=== PATIENT | male | born 1945 | race Hispanic/Latino ===

== ENCOUNTER 2017-09-03 19:49 | Emergency (ER) | payer MEDICARE ==
[~2017-09-03 19:49] MED LIST: ACLI400A2 IH; ALBUHFA IH; APIX5TAB PO; CARV12.511 PO; ESCI10TA54 PO; FLUT1DIS4 IH; FURO20TA4 PO; IBUP-2071 PO; METO5TAB2 PO; OMEP-272 PO; OMEP40CA37 PO; PRAV20TA4 PO; VIT D2 PO; ZONI25CA3 PO
[2017-09-03] MEDS ORDERED: ASPIRIN 325 MG TABLET ONE (20:11)
[2017-09-03 20:56] LABS: BASOPHILS % (AUTO) 0.8 % (0.0-5.0); EOSINOPHILS % (AUTO) 0.6 % (0.0-8.0); HEMATOCRIT 41.6 % (42-54); LYMPHOCYTES % (AUTO) 22.7 % (21.0-51.0); MEAN CORPUSCULAR HEMOGLOBIN 31.5 pg (27.0-33.0); MEAN CORPUSCULAR HGB CONC 33.6 g/dL (32.0-36.0); MEAN CORPUSCULAR VOLUME 93.7 fL (79-99); MONOCYTES % (AUTO) 7.7 % (3.0-13.0); NEUTROPHILS % (AUTO) 68.2 % (40.0-77.0); PLATELET COUNT (AUTO) 258 K/uL (130-400); RED BLOOD CELL COUNT(AUTO) 4.44 MIL/uL (4.50-6.20); RED CELL DISTRIBUTION WIDTH 15.5 % (11.0-15.5); WHITE BLOOD COUNT (AUTO) 12.5 K/uL (4.8-10.8)
[2017-09-03 21:22] LABS: CREATININE 1.1 mg/dL (0.5-1.5); POTASSIUM 3.9 mmol/L (3.5-5.1)
[2017-09-03 21:27] LABS: ALBUMIN 3.5 g/dL (3.5-5.0); BILIRUBIN,TOTAL 0.2 mg/dL (0.2-1.0); TOTAL PROTEIN, SERUM 6.7 g/dL (6.0-8.3)
== END 2017-09-03 23:50 | disposition home or self-care (01) ==
LOC: EDH 19:49
DX: R07.9 Chest pain, unspecified (principal); J44.9 Chronic obstructive pulmonary disease, unspecified; R94.31 Abnormal electrocardiogram [ECG] [EKG]; E78.5 Hyperlipidemia, unspecified; Z87.891 Personal history of nicotine dependence
CPT/HCPCS: 36415; 71045; 80053; 82550; 83880; 84484; 85025; 93005

== ENCOUNTER 2018-10-09 08:37 | Day surgery (SDC) | payer MEDICARE ==
[2018-10-09] VITALS (11 sets, daily range): BP systolic 87–128; BP diastolic 47–74
[~2018-10-09] VITALS: Ht 167.6 cm; Wt 51.7 kg
[~2018-10-09 08:37] MED LIST changes: -ACLI400A2 IH; -ALBUHFA IH; +AUD IH; -CARV12.511 PO; +DOXY100T19 PO; -FLUT1DIS4 IH; -IBUP-2071 PO; +LEVO25TA54 PO; +LOSA1TAB37 PO; +METO-408 PO; -METO5TAB2 PO; -OMEP-272 PO; -OMEP40CA37 PO; +OSEL30CA PO; +PANT40TA25 PO; +PRED20TA3 PO; +SODIUM CHLORIDE 0.9% 1000ML 1,000 ML IV ONE; -VIT D2 PO; -ZONI25CA3 PO
[2018-10-09] MEDS ORDERED: PROPOFOL 10 MG/ML 20ML VIAL IV ONE (12:29)
--- NOTE | 2018-10-09 13:22 | NUR ---
Patient's right shoulder down to mid scapula with fading deep purple. No blanching to purpled skin. Patient denies pain upon palpation to purple skin and denies a fall.
== END 2018-10-09 13:45 | disposition home or self-care (01) ==
LOC: DAH 08:37 → ENDO 08:37
PROVIDERS: ATTEND Internal Medicine Gastroenterology
DX: K29.50 Unspecified chronic gastritis without bleeding (principal); K31.9 Disease of stomach and duodenum, unspecified; J44.9 Chronic obstructive pulmonary disease, unspecified; K21.9 Gastro-esophageal reflux disease without esophagitis; Z86.010 Personal history of colon polyps; Z98.890 Other specified postprocedural states; Z79.899 Other long term (current) drug therapy; E78.2 Mixed hyperlipidemia; I10 Essential (primary) hypertension
CPT/HCPCS: 43239; 88305; 88342; 93005; A4606; J2704; J7030

== ENCOUNTER → 2018-10-24 | Outpatient (CLI) | payer MEDICARE ==
[~2018-10-24] MED LIST changes: -APIX5TAB PO; -DOXY100T19 PO; +IPRATROPIUM/ALBUTEROL SULFATE 3 ML SOLUTION IH ONE; -OSEL30CA PO; -PRED20TA3 PO; -SODIUM CHLORIDE 0.9% 1000ML 1,000 ML IV ONE
== END | disposition home or self-care (01) ==
LOC: RAH 08:58
PROVIDERS: ATTEND Internal Medicine Gastroenterology
DX: K21.9 Gastro-esophageal reflux disease without esophagitis (principal)
CPT/HCPCS: 74240

== ENCOUNTER 2018-10-26 09:49 | Observation (INO) | payer MEDICARE ==
[~2018-10-26] VITALS: Ht 170.2 cm; Wt 51.6 kg
[~2018-10-26 09:49] MED LIST changes: -IPRATROPIUM/ALBUTEROL SULFATE 3 ML SOLUTION IH ONE
[2018-10-26] MEDS ORDERED: SODIUM CHLORIDE 0.9% 1000ML 0 ML IV ONE (10:00)
[2018-10-26 10:34] LABS: ABG BASE EXCESS -3.3 mmol/L (-2.0-3.0); ABG HCO3 22.4 mmol/L (21.0-28.0); ABG OXYGEN SATURATION 96.6 % (95.0-99.0); ABG PCO2 42 mmHg (35-48)
[2018-10-26 10:35] LABS: POTASSIUM 4.5 mmol/L (3.5-5.1)
[2018-10-26 10:39] LABS: ALBUMIN 3.8 g/dL (3.5-5.0); BILIRUBIN,TOTAL 0.4 mg/dL (0.2-1.0); TOTAL PROTEIN, SERUM 7.2 g/dL (6.0-8.3)
[2018-10-26 10:46] LABS: PARTIAL THROMBOPLASTIN TIME 25.6 SEC (26.3-35.5); PROTHROMBIN TIME 10.5 SEC (9.6-11.6)
[2018-10-26 10:58] LABS: B-TYPE NATRIURETIC PEPTIDE 15 pg/mL (0-100)
[2018-10-26 11:02] LABS: BASOPHILS % (AUTO) 0.5 % (0.0-5.0); EOSINOPHILS % (AUTO) 0.2 % (0.0-8.0); HEMATOCRIT 40.3 % (42-54); LYMPHOCYTES % (AUTO) 12.4 % (21.0-51.0); MEAN CORPUSCULAR HGB CONC 33.1 g/dL (32.0-36.0); MEAN CORPUSCULAR VOLUME 93.7 fL (79-99); MONOCYTES % (AUTO) 4.4 % (3.0-13.0); NEUTROPHILS % (AUTO) 82.5 % (40.0-77.0); NUCLEATED RED BLOOD CELLS 0.3 % (0.0-0.19); PLATELET COUNT (AUTO) 274 K/uL (130-400); RED BLOOD CELL COUNT(AUTO) 4.31 MIL/uL (4.50-6.20); RED CELL DISTRIBUTION WIDTH 14.4 % (11.0-15.5); WHITE BLOOD COUNT (AUTO) 8.1 K/uL (4.8-10.8)
[2018-10-26] MEDS ORDERED: METHYLPREDNISOLONE SOD SUCC 125MG/2ML VIAL ONE (12:55)
[2018-10-26] MEDS ORDERED: IPRATROPIUM/ALBUTEROL SULFATE 3 ML SOLUTION IH ONE ×2 (13:04→20:10)
[2018-10-26] MEDS ORDERED: DEXTROSE 5 %-0.45 % NACL 1,000 ML IV ONE (18:32)
[2018-10-26] MEDS ORDERED: DEXTROSE 5 % AND 0.9 % NACL 1,000 ML IV ONE (18:35)
[2018-10-26] MEDS ORDERED: DIATR MEGLU/DIATRIZOATE SODIUM 30 ML BOTTLE ONE ×2 (20:19→20:21)
[2018-10-26 21:20] VITALS: BP 121/58
[2018-10-26] MEDS ORDERED: DEXTROSE 5 % AND 0.9 % NACL 1,000 ML IV SCH (22:00)
[2018-10-26] MEDS: PANTOPRAZOLE SODIUM 40 MG TABLET.DR PO SCH (22:19)
[2018-10-26 23:34] VITALS: BP 89/58
[2018-10-27] MEDS: IPRATROPIUM/ALBUTEROL SULFATE 3 ML SOLUTION IH SCH ×3 (00:58→11:18)
[2018-10-27 04:30] VITALS: BP 89/53
[2018-10-27 06:47] VITALS: BP 88/56
[2018-10-27 07:49] VITALS: BP 88/56
[2018-10-27] MEDS ORDERED: PRAV20TA4 PO (08:07)
[2018-10-27] MEDS ORDERED: NITR100C9 PO (08:07)
[2018-10-27] MEDS ORDERED: OLME1TAB40 PO (08:07)
[2018-10-27] MEDS ORDERED: ZONI25CA3 PO (08:07)
[2018-10-27] MEDS ORDERED: OMEP20CA10 PO (08:07)
[2018-10-27] MEDS ORDERED: BUDE10.2 IH (08:07)
[2018-10-27] MEDS ORDERED: PRED5TAB PO (08:07)
[2018-10-27] MEDS ORDERED: METO5TAB2 PO (08:07)
[2018-10-27] MEDS ORDERED: MIDO5TAB PO (08:07)
--- NOTE | 2018-10-27 09:58 | NUR ---
paged dr. gurrola for the result of the upper gi series. will wait for his callback.
--- NOTE | 2018-10-27 10:28 | NUR ---
reported to dr. socorro santacruz the result of the upper gi series. dr. santacruz verbalized that in his stand point there is no need of doing egd. that to follow up in his office upon discharge. advance the diet to full liquid.
[2018-10-27 12:21] VITALS: BP 93/58
[2018-10-27] MEDS: PANTOPRAZOLE SODIUM 40 MG TABLET.DR PO SCH (12:38)
--- NOTE | 2018-10-27 14:21 | NUR ---
INITIAL: Met with w pt this afternoon to discuss dcp. Pt states that he lives alone. Prior to admission was walking without assistive device but states is in the process of getting a walker. Pt is independent w ADLs. He has at home a nebulizer, sh chair and O2. Attending Yaima [facility] [employer] from 6:30am-1:30pm and has provider services 2:30pm-6:30pm. Pt states that his friend Gloria will assist to transport him home at in. Pt mentions he feels safe and comfortable to return home at in. Addendum: 10/27/18 at 1434 by ELLE WITT CM Amended: Links added.
[2018-10-27 16:51] VITALS: BP 109/49
== END 2018-10-27 17:35 | disposition home or self-care (01) ==
LOC: EDH 09:49 → EDHIP 16:52 → 3CH 20:09
PROVIDERS: ADMIT Internal Medicine Critical Care Medicine; ATTEND Internal Medicine Critical Care Medicine
DX: R13.12 Dysphagia, oropharyngeal phase (principal); E03.9 Hypothyroidism, unspecified; E78.5 Hyperlipidemia, unspecified; J44.9 Chronic obstructive pulmonary disease, unspecified; K21.9 Gastro-esophageal reflux disease without esophagitis; F41.8 Other specified anxiety disorders; Z87.891 Personal history of nicotine dependence; Z79.899 Other long term (current) drug therapy; Z79.01 Long term (current) use of anticoagulants
CPT/HCPCS: 36415; 36600; 70490; 71045; 71250; 74220; 80053; 82550; 82803; 83880; 84484; 85025; 85610; 85730; 93005; 94640 ×5; 94664; 99284; G0378 ×25; J2930; J7042 ×3; Q9963 ×2; J7030

== ENCOUNTER 2018-12-17 10:01 | Emergency (ER) | payer MEDICARE ==
[~2018-12-17 10:01] MED LIST changes: +BUDE10.2 IH; -LOSA1TAB37 PO; -METO-408 PO; +METO5TAB2 PO; +MIDO5TAB PO; +NITR100C9 PO; +OLME1TAB40 PO; +OMEP-50 PO; -PANT40TA25 PO; +PRED5TAB PO; +ZONI25CA3 PO
[2018-12-17 10:31] LABS: BASOPHILS % (AUTO) 1.1 % (0.0-5.0); EOSINOPHILS % (AUTO) 1.1 % (0.0-8.0); HEMATOCRIT 41.1 % (42-54); LYMPHOCYTES % (AUTO) 19.7 % (21.0-51.0); MEAN CORPUSCULAR HEMOGLOBIN 30.3 pg (27.0-33.0); MEAN CORPUSCULAR HGB CONC 32.8 g/dL (32.0-36.0); MEAN CORPUSCULAR VOLUME 92.5 fL (79-99); MONOCYTES % (AUTO) 8.8 % (3.0-13.0); NEUTROPHILS % (AUTO) 69.3 % (40.0-77.0); NUCLEATED RED BLOOD CELLS 0.1 % (0.0-0.19); PLATELET COUNT (AUTO) 218 K/uL (130-400); RED BLOOD CELL COUNT(AUTO) 4.44 MIL/uL (4.50-6.20); RED CELL DISTRIBUTION WIDTH 14.6 % (11.0-15.5)
[2018-12-17 10:43] LABS: APPEARANCE,URINE Clear (CLEAR); BILIRUBIN,URINE Negative (NEGATIVE); COLOR,URINE Dark Yellow (YELLOW); GLUCOSE, URINE (UA) Negative (NEGATIVE); KETONES,URINE Trace mg/dL (NEGATIVE); LEUKOCYTE ESTERASE ,URINE Trace (NEGATIVE); NITRATE,URINE Negative (NEGATIVE); OCCULT BLOOD,URINE Negative (NEGATIVE); PH,URINE 5.5 (5.0-8.0); PROTEIN,URINE Trace mg/dL (NEGATIVE)
[2018-12-17 10:45] LABS: CREATININE 1.1 mg/dL (0.5-1.5); POTASSIUM 4.9 mmol/L (3.5-5.1)
[2018-12-17 10:49] LABS: BILIRUBIN,TOTAL 0.5 mg/dL (0.2-1.0); TOTAL PROTEIN, SERUM 7.1 g/dL (6.0-8.3)
[2018-12-17 10:55] LABS: PARTIAL THROMBOPLASTIN TIME 20.1 SEC (26.3-35.5)
[2018-12-17 11:03] LABS: BACTERIA,URINE None Seen /HPF (None Seen); HYALINE CASTS, URINE 0-1 /LPF (0-1 /LPF); MUCUS,URINE Few LPF (None Seen); RBC,URINE 0-1 /HPF (0-1); SQUAMOUS EPITHELIAL CELL,UR 0-2 /HPF (0-2); WBC,URINE 0-1 /HPF (0-1)
[2018-12-17 11:07] LABS: INR 0.98 (0.85-1.15); PROTHROMBIN TIME 10.3 SEC (9.6-11.6)
[2018-12-17] MEDS ORDERED: TRAMADOL HCL 50 MG TABLET ONE (11:38)
== END 2018-12-17 12:13 | disposition home or self-care (01) ==
LOC: EDH 10:01
DX: R07.89 Other chest pain (principal); I10 Essential (primary) hypertension; J44.9 Chronic obstructive pulmonary disease, unspecified; E78.5 Hyperlipidemia, unspecified; I48.91 Unspecified atrial fibrillation; Z79.899 Other long term (current) drug therapy
CPT/HCPCS: 36415; 71101; 80053; 81001; 82150; 82550; 83690; 84484; 85025; 85610; 85730; 93005

== ENCOUNTER 2018-12-20 01:04 | Emergency (ER) | payer MEDICARE ==
[2018-12-20 01:34] LABS: BASOPHILS % (AUTO) 2.9 % (0.0-5.0); EOSINOPHILS % (AUTO) 0.9 % (0.0-8.0); HEMATOCRIT 37.6 % (42-54); LYMPHOCYTES % (AUTO) 13.2 % (21.0-51.0); MEAN CORPUSCULAR HEMOGLOBIN 31.3 pg (27.0-33.0); MEAN CORPUSCULAR HGB CONC 33.3 g/dL (32.0-36.0); MEAN CORPUSCULAR VOLUME 93.9 fL (79-99); MONOCYTES % (AUTO) 10.4 % (3.0-13.0); NEUTROPHILS % (AUTO) 72.6 % (40.0-77.0); PLATELET COUNT (AUTO) 211 K/uL (130-400); RED CELL DISTRIBUTION WIDTH 15.1 % (11.0-15.5); WHITE BLOOD COUNT (AUTO) 8.5 K/uL (4.8-10.8)
[2018-12-20 01:42] LABS: CREATININE 0.9 mg/dL (0.5-1.5); POTASSIUM 4.8 mmol/L (3.5-5.1)
[2018-12-20 01:45] LABS: INR 0.94 (0.85-1.15); PARTIAL THROMBOPLASTIN TIME 20.4 SEC (26.3-35.5); PROTHROMBIN TIME 9.9 SEC (9.6-11.6)
[2018-12-20 01:47] LABS: B-TYPE NATRIURETIC PEPTIDE 51 pg/mL (0-100)
[2018-12-20 01:48] LABS: ALBUMIN 3.6 g/dL (3.5-5.0); BILIRUBIN,TOTAL 0.3 mg/dL (0.2-1.0); TOTAL PROTEIN, SERUM 6.2 g/dL (6.0-8.3)
[2018-12-20] MEDS ORDERED: MORPHINE SULFATE 4 MG/1ML SYG ONE (01:59)
[2018-12-20] MEDS ORDERED: ONDANSETRON HCL 4 MG/2 ML VIAL ONE (01:59)
[2018-12-20] MEDS ORDERED: IPRATROPIUM/ALBUTEROL SULFATE 3 ML SOLUTION IH ONE (02:03)
[2018-12-20 02:08] LABS: APPEARANCE,URINE Clear (CLEAR); BILIRUBIN,URINE Negative (NEGATIVE); COLOR,URINE Yellow (YELLOW); GLUCOSE, URINE (UA) Negative (NEGATIVE); KETONES,URINE Negative (NEGATIVE); LEUKOCYTE ESTERASE ,URINE Negative (NEGATIVE); NITRATE,URINE Negative (NEGATIVE); OCCULT BLOOD,URINE Negative (NEGATIVE); PH,URINE 6.5 (5.0-8.0); PROTEIN,URINE Negative (NEGATIVE)
== END 2018-12-20 03:22 | disposition home or self-care (01) ==
LOC: EDH 01:04
DX: R07.89 Other chest pain (principal); R06.02 Shortness of breath; I48.91 Unspecified atrial fibrillation; J44.9 Chronic obstructive pulmonary disease, unspecified; E78.5 Hyperlipidemia, unspecified; I10 Essential (primary) hypertension
CPT/HCPCS: 36415; 71045; 80053; 81003; 82550; 83880; 84484; 85025; 85610; 85730; 93005; 94640; 96374; 96375; 99285; J2270; J2405

== ENCOUNTER 2018-12-21 08:48 | Observation (INO) | payer MEDICARE ==
[~2018-12-21] VITALS: Ht 172.7 cm; Wt 51.0 kg
[2018-12-21 09:15] LABS: BASOPHILS % (AUTO) 0.7 % (0.0-5.0); EOSINOPHILS % (AUTO) 0.4 % (0.0-8.0); HEMATOCRIT 41.1 % (42-54); LYMPHOCYTES % (AUTO) 11.7 % (21.0-51.0); MEAN CORPUSCULAR HEMOGLOBIN 30.5 pg (27.0-33.0); MEAN CORPUSCULAR HGB CONC 32.6 g/dL (32.0-36.0); MEAN CORPUSCULAR VOLUME 93.6 fL (79-99); MONOCYTES % (AUTO) 6.6 % (3.0-13.0); NEUTROPHILS % (AUTO) 80.6 % (40.0-77.0); PLATELET COUNT (AUTO) 214 K/uL (130-400); RED BLOOD CELL COUNT(AUTO) 4.38 MIL/uL (4.50-6.20); RED CELL DISTRIBUTION WIDTH 15.7 % (11.0-15.5); WHITE BLOOD COUNT (AUTO) 9.4 K/uL (4.8-10.8)
[2018-12-21 09:22] LABS: CREATININE 1.2 mg/dL (0.5-1.5); POTASSIUM 5.1 mmol/L (3.5-5.1)
[2018-12-21 09:25] LABS: INR 0.93 (0.85-1.15); PARTIAL THROMBOPLASTIN TIME 21.9 SEC (26.3-35.5); PROTHROMBIN TIME 9.8 SEC (9.6-11.6)
[2018-12-21 09:26] LABS: ALBUMIN 3.7 g/dL (3.5-5.0); BILIRUBIN,TOTAL 0.3 mg/dL (0.2-1.0)
[2018-12-21] MEDS ORDERED: METHYLPREDNISOLONE SOD SUCC 125MG/2ML VIAL ONE (09:28)
[2018-12-21] MEDS ORDERED: IPRATROPIUM/ALBUTEROL SULFATE 3 ML SOLUTION IH ONE (09:34)
[2018-12-21] MEDS ORDERED: ASPIRIN 325 MG TABLET ONE (09:34)
[2018-12-21 09:36] LABS: B-TYPE NATRIURETIC PEPTIDE 43 pg/mL (0-100)
[2018-12-21 09:44] LABS: ABG BASE EXCESS 1.7 mmol/L (-2.0-3.0); ABG HCO3 26.9 mmol/L (21.0-28.0); ABG OXYGEN SATURATION 97.3 % (95.0-99.0); ABG PCO2 44 mmHg (35-48)
[2018-12-21] MEDS ORDERED: CEFTRIAXONE SODIUM 1 GM ONE (12:39)
[2018-12-21 12:57] VITALS: BP 126/68
[2018-12-21] MEDS ORDERED: SODIUM CHLORIDE 0.9% 10 ML VIAL IVP PRN (13:15)
[2018-12-21] MEDS: AZITHROMYCIN 500MG+NS 250ML 250 ML IV SCH (13:21)
[2018-12-21 13:55] LABS: CREATINE KINASE, TOTAL 161 U/L (21-232); MYOGLOBIN 75 ng/mL (10-92); TROPONIN I < 0.04 ng/mL (0.00-0.06)
[2018-12-21] MEDS ORDERED: PHARMACY COMMUNICATION MISC SCH (14:00)
[2018-12-21] MEDS: METOCLOPRAMIDE 5 MG TABLET PO SCH ×2 (14:00→21:35)
[2018-12-21] MEDS ORDERED: ALBUTEROL SULFATE 0.083% 2.5 MG/3 ML INH IH PRN (14:15)
[2018-12-21] MEDS ORDERED: COMPOUND PO MISCELLANEOUS 1 EACH MISC MISC PRN (14:15)
[2018-12-21] MEDS ORDERED: LIDOCAINE HCL 2% VISCOUS 30 ML, MAG HYDROX/AL HYDROX/SIMETH 30 ML, DICYCLOMINE HCL 20 MG PO PRN ×3 (14:15)
[2018-12-21 16:00] VITALS: BP 128/70
[2018-12-21] MEDS: KETOROLAC TROMETHAMINE 30MG/ML IV PRN (17:31)
[2018-12-21] MEDS: METHYLPREDNISOLONE SOD SUCC 125MG/2ML VIAL IVP SCH ×2 (17:33→21:35)
--- NOTE | 2018-12-21 19:15 | NUR ---
PM Assessment Received pt with a friend Gloria Zavala # [phone] at the bedside who stated he is about to leave the pt but will be coming back in AM as claimed pt lives alone & that the pt is her friend group from [facility] where their group help each other especially with those [place]. Routine assessment done, plan of care discuss, made aware & agreed that he needs to be place on BIPAP once ready to go to sleep, agreed. Pt currently denies any discomfort.
[2018-12-21] MEDS: BUDESONIDE 0.5 MG/2 ML INH IH SCH (19:27)
[2018-12-21] MEDS: IPRATROPIUM/ALBUTEROL SULFATE 3 ML SOLUTION IH SCH ×2 (19:27→23:25)
[2018-12-21 19:41] VITALS: BP 123/69
[2018-12-21] MEDS: ATORVASTATIN CALCIUM 10 MG TABLET PO SCH (21:35)
[2018-12-22] VITALS (7 sets, daily range): BP systolic 101–125; BP diastolic 58–68
[2018-12-22] MEDS: METHYLPREDNISOLONE SOD SUCC 125MG/2ML VIAL IVP SCH (04:29)
[2018-12-22] MEDS: LEVOTHYROXINE 25 MCG TABLET PO SCH (06:46)
[2018-12-22] MEDS: BUDESONIDE 0.5 MG/2 ML INH IH SCH ×2 (06:51→19:01)
[2018-12-22] MEDS: IPRATROPIUM/ALBUTEROL SULFATE 3 ML SOLUTION IH SCH ×4 (06:51→23:10)
[2018-12-22] MEDS ORDERED: PREDNISONE 5 MG TABLET PO SCH (09:00)
[2018-12-22] MEDS: FUROSEMIDE 20 MG TABLET PO SCH (09:48)
[2018-12-22] MEDS: PANTOPRAZOLE SODIUM 40 MG TABLET.DR PO SCH (09:48)
[2018-12-22] MEDS: LOSARTAN 100 MG TABLET PO SCH (09:48)
[2018-12-22] MEDS: HYDROCHLOROTHIAZIDE 25 MG TABLET PO SCH (09:48)
[2018-12-22] MEDS: METOCLOPRAMIDE 5 MG TABLET PO SCH ×3 (09:48→21:13)
[2018-12-22] MEDS: CEFTRIAXONE SODIUM 1 GM IVP SCH (09:48)
[2018-12-22] MEDS: CITALOPRAM 20 MG TABLET PO SCH (09:48)
[2018-12-22] MEDS: ZONISAMIDE 50 MG PO SCH ×2 (10:05→21:00)
[2018-12-22] MEDS: AZITHROMYCIN 500MG+NS 250ML 250 ML IV SCH (13:55)
[2018-12-22] MEDS ORDERED: ALEN35TA31 PO (13:55)
--- NOTE | 2018-12-22 17:25 | NUR ---
cm note met with patient and states resides at home alone, uses walker for ambulation, uses home O2 continuous portable and concentrator, . attends [employer] [facility] mon-monday 631am to 1230p. has provider 1230p to 630pm daily. no nebulizer, only inhalers. states feels safe to reurn back home at time of dc. but, not until his pain has improved. states no dc needs. Addendum: 12/22/18 at 1728 by JOSÉ WALLACE CM Amended: Links added.
[2018-12-22] MEDS: ATORVASTATIN CALCIUM 10 MG TABLET PO SCH (21:14)
[2018-12-23] MEDS: KETOROLAC TROMETHAMINE 30MG/ML IV PRN (00:03)
[2018-12-23 03:54] VITALS: BP 127/75
[2018-12-23] MEDS: IPRATROPIUM/ALBUTEROL SULFATE 3 ML SOLUTION IH SCH ×2 (06:23→10:59)
[2018-12-23] MEDS: BUDESONIDE 0.5 MG/2 ML INH IH SCH (06:23)
[2018-12-23 07:34] VITALS: BP 126/71
[2018-12-23] MEDS: HYDROCHLOROTHIAZIDE 25 MG TABLET PO SCH (07:53)
[2018-12-23] MEDS: METOCLOPRAMIDE 5 MG TABLET PO SCH ×2 (07:53→13:00)
[2018-12-23] MEDS: CITALOPRAM 20 MG TABLET PO SCH (07:53)
[2018-12-23] MEDS: FUROSEMIDE 20 MG TABLET PO SCH (07:53)
[2018-12-23] MEDS: LOSARTAN 100 MG TABLET PO SCH (07:53)
[2018-12-23] MEDS: PANTOPRAZOLE SODIUM 40 MG TABLET.DR PO SCH (07:53)
[2018-12-23] MEDS: LEVOTHYROXINE 25 MCG TABLET PO SCH (07:53)
[2018-12-23] MEDS: ZONISAMIDE 50 MG PO SCH (08:02)
[2018-12-23] MEDS ORDERED: PREDNISONE 20 MG TABLET PO SCH (09:00)
--- NOTE | 2018-12-23 11:00 | NUR ---
DR. 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 DR. DE JESUS INFORMED PT. RE:DISCHARGE PLAN FOR HOME TODAY, PT. VERBALIZED UNDERSTANDING.
[2018-12-23] MEDS: CEFTRIAXONE SODIUM 1 GM IVP SCH (11:01)
[2018-12-23 11:40] VITALS: BP 112/67
[2018-12-23] MEDS: AZITHROMYCIN 500MG+NS 250ML 250 ML IV SCH (12:55)
--- NOTE | 2018-12-23 15:20 | NUR ---
HL REMOVED, CATHETER INTACT. DISCHARGE INSTRUCTIONS GIVEN, VERBALIZED UNDERSTANDING.
== END 2018-12-23 15:39 | disposition home or self-care (01) ==
LOC: EDH 08:48 → EDHIP 11:40 → 2DH 12:34
PROVIDERS: ADMIT Internal Medicine Critical Care Medicine; ATTEND Internal Medicine Critical Care Medicine
DX: J44.1 Chronic obstructive pulmonary disease with (acute) exacerbation (principal); E03.9 Hypothyroidism, unspecified; E78.5 Hyperlipidemia, unspecified; R13.12 Dysphagia, oropharyngeal phase; F32.9 Major depressive disorder, single episode, unspecified; F41.9 Anxiety disorder, unspecified; Z87.891 Personal history of nicotine dependence; Z99.81 Dependence on supplemental oxygen; Z79.899 Other long term (current) drug therapy; Z79.01 Long term (current) use of anticoagulants
CPT/HCPCS: 36415; 36600; 71045; 80053; 82435; 82550 ×2; 82803; 82947; 83605; 83874; 83880; 84132; 84295; 84484 ×2; 85018; 85025; 85610; 85730; 93005 ×2; 94640 ×13; 94660; 94664; 96365; 96366 ×2; 96375; 96376 ×3; 99291; G0378 ×50; J0456 ×3; J0696 ×3; J1885 ×2; J2930 ×4; J7512

== ENCOUNTER → 2019-01-09 | Outpatient (CLI) | payer MEDICARE ==
[~2019-01-09] MED LIST changes: +ALEN35TA31 PO
== END | disposition home or self-care (01) ==
LOC: RAH 10:52
PROVIDERS: ATTEND Internal Medicine Cardiovascular Disease
DX: I25.10 Atherosclerotic heart disease of native coronary artery without angina pectoris (principal); J98.4 Other disorders of lung
CPT/HCPCS: 71250

== ENCOUNTER → 2019-03-25 | Outpatient (CLI) | payer MEDICARE ==
[~2019-03-25] VITALS: Ht 172.7 cm; Wt 51.7 kg
[~2019-03-25] MED LIST changes: +ALEN35TA23 PO; -ALEN35TA31 PO; -MIDO5TAB PO; +MIDO5TAB4 PO; +REGADENOSON 0.4 MG/5 ML PF SYG IVP SCH
== END | disposition home or self-care (01) ==
LOC: SHCH 08:09
PROVIDERS: ATTEND Internal Medicine Cardiovascular Disease
DX: I25.9 Chronic ischemic heart disease, unspecified (principal); I25.10 Atherosclerotic heart disease of native coronary artery without angina pectoris
CPT/HCPCS: 78452; 93017; 96374; A9500 ×2; J2785

== ENCOUNTER → 2019-06-25 | Outpatient (CLI) | payer MEDICARE ==
[~2019-06-25] MED LIST changes: -OLME1TAB40 PO; +OLME1TAB82 PO; -OMEP-50 PO; +OMEP20CA12 PO; -REGADENOSON 0.4 MG/5 ML PF SYG IVP SCH; +ZONI25CA14 PO; -ZONI25CA3 PO
[2019-06-25 08:42] LABS: BASOPHILS % (AUTO) 0.4 % (0.0-5.0); EOSINOPHILS % (AUTO) 3.1 % (0.0-8.0); HEMATOCRIT 41.2 % (42-54); LYMPHOCYTES % (AUTO) 23.1 % (21.0-51.0); MEAN CORPUSCULAR HEMOGLOBIN 29.6 pg (27.0-33.0); MEAN CORPUSCULAR HGB CONC 31.1 g/dL (32.0-36.0); MEAN CORPUSCULAR VOLUME 95.2 fL (79-99); MONOCYTES % (AUTO) 9.3 % (3.0-13.0); NEUTROPHILS % (AUTO) 63.6 % (40.0-77.0); PLATELET COUNT (AUTO) 293 K/uL (130-400); RED BLOOD CELL COUNT(AUTO) 4.33 MIL/uL (4.50-6.20); WHITE BLOOD COUNT (AUTO) 8.3 K/uL (4.8-10.8)
[2019-06-25 08:49] LABS: APPEARANCE,URINE Clear (CLEAR); BILIRUBIN,URINE Negative (NEGATIVE); COLOR,URINE Yellow (YELLOW); GLUCOSE, URINE (UA) Negative (NEGATIVE); KETONES,URINE Negative (NEGATIVE); LEUKOCYTE ESTERASE ,URINE Negative (NEGATIVE); NITRATE,URINE Negative (NEGATIVE); OCCULT BLOOD,URINE Negative (NEGATIVE); PROTEIN,URINE POS 1+ mg/dL (NEGATIVE)
[2019-06-25 08:59] LABS: BACTERIA,URINE Rare /HPF (None Seen); MUCUS,URINE Rare LPF (None Seen); RBC,URINE 0-1 /HPF (0-1); SQUAMOUS EPITHELIAL CELL,UR Rare /HPF (0-2); WBC,URINE 0-1 /HPF (0-1)
[2019-06-25 09:33] LABS: ALBUMIN 3.5 g/dL (3.5-5.0); BILIRUBIN,TOTAL 0.4 mg/dL (0.2-1.0); POTASSIUM 4.3 mmol/L (3.5-5.1); THYROID STIMULATING HORMONE 4.79 uIU/mL (0.36-3.74); TOTAL PROTEIN, SERUM 6.8 g/dL (6.0-8.3)
== END | disposition home or self-care (01) ==
LOC: LAB 07:30
PROVIDERS: ATTEND Family Medicine
DX: E55.9 Vitamin D deficiency, unspecified (principal); E53.8 Deficiency of other specified B group vitamins; R73.9 Hyperglycemia, unspecified; I10 Essential (primary) hypertension; E03.9 Hypothyroidism, unspecified; R73.03 Prediabetes; Z00.00 Encounter for general adult medical examination without abnormal findings; Z79.899 Other long term (current) drug therapy
CPT/HCPCS: 36415; 80053; 80061; 81001; 82306; 82607; 84439; 84443; 84481; 85025

== ENCOUNTER → 2019-11-08 | Outpatient (CLI) | payer MEDICARE | END | disposition home or self-care (01) | LOC: SHCH 08:05 | PROVIDERS: ATTEND Internal Medicine Cardiovascular Disease | DX: R60.0 Localized edema (principal) | CPT/HCPCS: 93306; 93356 ==

== ENCOUNTER → 2020-05-28 | Outpatient (CLI) | payer MEDICARE ==
[~2020-05-28] MED LIST changes: -ALEN35TA23 PO; +ALEN35TA51 PO; +OLME-7 PO; -OLME1TAB82 PO
== END | disposition home or self-care (01) ==
LOC: RAH 10:07
PROVIDERS: ATTEND Internal Medicine Gastroenterology
DX: R63.3 Feeding difficulties (principal); R13.12 Dysphagia, oropharyngeal phase
CPT/HCPCS: 74230; 92610; 92611

== ENCOUNTER → 2020-06-23 | Outpatient (CLI) | payer MEDICARE | END | disposition home or self-care (01) | LOC: RAH 10:31 | PROVIDERS: ATTEND Family Medicine | DX: M19.012 Primary osteoarthritis, left shoulder (principal); M75.102 Unspecified rotator cuff tear or rupture of left shoulder, not specified as traumatic | CPT/HCPCS: 73221 ==

== ENCOUNTER 2021-06-29 09:10 | Emergency (ER) | payer MEDICARE ==
[~2021-06-29 09:10] MED LIST changes: -ALEN35TA51 PO; +ALEN35TA53 PO; +APIX5TAB PO; +ESCI-8 PO; -ESCI10TA54 PO; +METO-408 PO; +PANT40TA54 PO; +PRED10TA3 PO; -PRED5TAB PO
[2021-06-29 09:44] LABS: BASOPHILS % (AUTO) 0.2 % (0.0-5.0); EOSINOPHILS % (AUTO) 0.3 % (0.0-8.0); HEMATOCRIT 43.7 % (42-54); LYMPHOCYTES % (AUTO) 22.5 % (21.0-51.0); MEAN CORPUSCULAR HEMOGLOBIN 27.9 pg (27.0-33.0); MEAN CORPUSCULAR HGB CONC 30.4 g/dL (32.0-36.0); MEAN CORPUSCULAR VOLUME 91.8 fL (79-99); MONOCYTES % (AUTO) 9.7 % (3.0-13.0); PLATELET COUNT (AUTO) 245 K/uL (130-400); RED BLOOD CELL COUNT(AUTO) 4.76 MIL/uL (4.50-6.20); RED CELL DISTRIBUTION WIDTH 17.7 % (11.0-15.5); WHITE BLOOD COUNT (AUTO) 15.1 K/uL (4.8-10.8)
[2021-06-29 09:51] LABS: CREATININE 1.1 mg/dL (0.5-1.5); POTASSIUM 5.1 mmol/L (3.5-5.1)
[2021-06-29 09:56] LABS: ALBUMIN 4.2 g/dL (3.5-5.0); BILIRUBIN,TOTAL 0.3 mg/dL (0.2-1.0); TOTAL PROTEIN, SERUM 7.5 g/dL (6.0-8.3)
[2021-06-29 12:43] VITALS: BP 124/74
== END 2021-06-29 13:32 | disposition home or self-care (01) ==
LOC: EDH 09:10
DX: R09.89 Other specified symptoms and signs involving the circulatory and respiratory systems (principal); R07.0 Pain in throat; R06.02 Shortness of breath; Z20.822 Contact with and (suspected) exposure to COVID-19; E11.9 Type 2 diabetes mellitus without complications; E78.00 Pure hypercholesterolemia, unspecified; Z79.01 Long term (current) use of anticoagulants; Z79.51 Long term (current) use of inhaled steroids; Z79.52 Long term (current) use of systemic steroids; Z79.899 Other long term (current) drug therapy
CPT/HCPCS: 36415; 70490; 71045; 71250; 80053; 85025; 87426

== ENCOUNTER 2021-08-16 13:45 | Inpatient (IN) | payer MEDICARE ==
[~2021-08-16] VITALS: Ht 154.9 cm; Wt 47.9 kg
[2021-08-16] MEDS ORDERED: NITROGLYCERIN 0.4 MG SL TAB SL PRN (14:00)
[2021-08-16 14:08] LABS: HEMATOCRIT 41.7 % (42-54); MEAN CORPUSCULAR HEMOGLOBIN 29.5 pg (27.0-33.0); MEAN CORPUSCULAR HGB CONC 31.4 g/dL (32.0-36.0); MEAN CORPUSCULAR VOLUME 93.9 fL (79-99); RED BLOOD CELL COUNT(AUTO) 4.44 MIL/uL (4.50-6.20); WHITE BLOOD COUNT (AUTO) 8.2 K/uL (4.8-10.8)
[2021-08-16 14:09] LABS: PLATELET COUNT (AUTO) 204 K/uL (130-400)
[2021-08-16] MEDS ORDERED: DOCU-116 PO (14:14)
[2021-08-16] MEDS ORDERED: NITR0.4T50 SL (14:14)
[2021-08-16] MEDS ORDERED: LISI5TAB21 PO (14:14)
[2021-08-16] MEDS ORDERED: CETI10TA57 PO (14:14)
[2021-08-16] MEDS ORDERED: OLOP2.5D16 OP (14:14)
[2021-08-16] MEDS ORDERED: ISOS30TA92 PO (14:14)
[2021-08-16 14:17] LABS: CREATININE 1.1 mg/dL (0.5-1.5); POTASSIUM 5.3 mmol/L (3.5-5.1)
[2021-08-16 14:34] LABS: ABG BASE EXCESS -8.2 mmol/L (-2.0-3.0); ABG HCO3 14.3 mmol/L (21.0-28.0); ABG OXYGEN SATURATION 98.8 % (95.0-99.0); ABG PCO2 24 mmHg (35-48)
[2021-08-16 14:57] LABS: B-TYPE NATRIURETIC PEPTIDE 75 pg/mL (0-100)
[2021-08-16] MEDS ORDERED: CEFTRIAXONE 2GM VIAL IVP SCH (15:30)
[2021-08-16] MEDS ORDERED: PANTOPRAZOLE 40 MG/VIAL IVP ONE (15:30)
[2021-08-16] MEDS: IPRATROPIUM/ALBUTEROL SULFATE 3 ML SOLUTION IH SCH ×3 (16:00→23:44)
[2021-08-16 16:01] LABS: ALBUMIN 3.5 g/dL (3.5-5.0); BAND NEUTROPHILS % (MANUAL) 4 % (0-2); BILIRUBIN,DIRECT 0.1 mg/dL (0.0-0.3); BILIRUBIN,TOTAL 0.2 mg/dL (0.2-1.0); MAN.DIFF COMMENT-IMPRESSION MANUAL DIFFERENTIAL; MONOCYTES % (MANUAL) 4 % (2-9); REACTIVE LYMPHOCYTES 6 % (0-0); SEGMENTED NEUTROPHILS % 86 % (40-70); THYROID STIMULATING HORMONE 1.81 uIU/mL (0.36-3.74); TOTAL PROTEIN, SERUM 6.9 g/dL (6.0-8.3)
[2021-08-16 16:05] LABS: PLATELET MORPHOLOGY COMMENT LARGE PLTS PRESENT
[2021-08-16] MEDS ORDERED: 0.9%NACL 50ML 50 ML IV ONE (16:27)
[2021-08-16] MEDS: SOLU-MEDROL 40MG VIAL IVP SCH ×2 (16:35→22:35)
[2021-08-16 16:46] LABS: CREATINE KINASE, TOTAL 88 U/L (21-232); MYOGLOBIN 82 ng/mL (10-92)
[2021-08-16] MEDS ORDERED: LACTATED RINGERS 1000ML 1,000 ML IV ONE (16:53)
[2021-08-16 16:57] LABS: CRP QUANTITATIVE < 2.00 mg/L (0.00-9.0)
[2021-08-16] MEDS ORDERED: LACTATED RINGERS 1000ML 1,000 ML IV SCH (17:00)
[2021-08-16] MEDS ORDERED: 0.9%NACL 1000ML 1,000 ML IV SCH (17:00)
[2021-08-16] MEDS ORDERED: ZOSYN 3.375GM +NS 50ML IV SCH (17:30)
[2021-08-16] MEDS: DOXYCYCLINE 100MG+NS 250ML IV SCH (17:44)
[2021-08-16] MEDS ORDERED: [UNRECOGNIZED DRUG - REMARK] MISC SCH (18:00)
[2021-08-16] MEDS: BUDESONIDE 0.5 MG/2 ML INH IH SCH (18:20)
[2021-08-16] MEDS ORDERED: ZONISAMIDE 100 MG PO SCH (21:00)
[2021-08-16] MEDS: ZONISAMIDE 100 MG CAP PO SCH (21:00)
[2021-08-16 21:05] VITALS: BP 115/65
[2021-08-16] MEDS: ATORVASTATIN 10 MG TABLET PO SCH (22:35)
[2021-08-16] MEDS: ZOSYN 3.375GM +NS 50ML IV SCH (22:35)
[2021-08-17] MEDS ORDERED: NITROGLYCERIN 0.4 MG SL TAB SL PRN
[2021-08-17 00:03] VITALS: BP 112/67
[2021-08-17 04:08] VITALS: BP 123/68
[2021-08-17] MEDS: DOXYCYCLINE 100MG+NS 250ML IV SCH ×2 (04:24→16:18)
[2021-08-17] MEDS: SOLU-MEDROL 40MG VIAL IVP SCH ×4 (04:24→19:37)
[2021-08-17 04:58] LABS: HEMATOCRIT 37.6 % (42-54); MEAN CORPUSCULAR HEMOGLOBIN 29.5 pg (27.0-33.0); MEAN CORPUSCULAR HGB CONC 31.4 g/dL (32.0-36.0); RED CELL DISTRIBUTION WIDTH 17.2 % (11.0-15.5); WHITE BLOOD COUNT (AUTO) 6.9 K/uL (4.8-10.8)
[2021-08-17 05:26] LABS: CREATININE 1.1 mg/dL (0.5-1.5); POTASSIUM 4.6 mmol/L (3.5-5.1); THYROID STIMULATING HORMONE 0.46 uIU/mL (0.36-3.74)
[2021-08-17] MEDS: LEVOTHYROXINE 50 MCG TABLET PO SCH (05:50)
[2021-08-17] MEDS: ZOSYN 3.375GM +NS 50ML IV SCH ×3 (05:50→19:37)
[2021-08-17] MEDS: IPRATROPIUM/ALBUTEROL SULFATE 3 ML SOLUTION IH SCH ×4 (06:30→23:22)
[2021-08-17] MEDS: BUDESONIDE 0.5 MG/2 ML INH IH SCH ×2 (06:30→18:43)
[2021-08-17 07:09] LABS: ABG BASE EXCESS -4.3 mmol/L (-2.0-3.0); ABG HCO3 20.6 mmol/L (21.0-28.0); ABG OXYGEN SATURATION 97.3 % (95.0-99.0); ABG PCO2 38 mmHg (35-48)
[2021-08-17 07:30] VITALS: BP 135/60
[2021-08-17 07:39] LABS: HEMATOCRIT 38.3 % (42-54); MEAN CORPUSCULAR HEMOGLOBIN 29.6 pg (27.0-33.0); MEAN CORPUSCULAR HGB CONC 31.3 g/dL (32.0-36.0); MEAN CORPUSCULAR VOLUME 94.6 fL (79-99); RED BLOOD CELL COUNT(AUTO) 4.05 MIL/uL (4.50-6.20); RED CELL DISTRIBUTION WIDTH 17.1 % (11.0-15.5); WHITE BLOOD COUNT (AUTO) 7.9 K/uL (4.8-10.8)
[2021-08-17 07:51] LABS: INR 1.09 (0.85-1.15); PROTHROMBIN TIME 11.8 SEC (9.6-11.6)
[2021-08-17 07:53] LABS: PARTIAL THROMBOPLASTIN TIME 25.9 SEC (26.3-35.5)
[2021-08-17] MEDS: ZONISAMIDE 100 MG CAP PO SCH ×2 (08:51→19:37)
[2021-08-17] MEDS: CETIRIZINE HCL 5 MG TABLET PO SCH (08:52)
[2021-08-17] MEDS: METOPROLOL SUCCINATE 50 MG TAB.SR.24H PO SCH (08:52)
[2021-08-17] MEDS: PANTOPRAZOLE 40 MG TAB DR PO SCH (08:52)
[2021-08-17] MEDS: METOCLOPRAMIDE 5 MG TABLET PO SCH (08:53)
[2021-08-17] MEDS: ISOSORBIDE MONO 30MG SR TAB PO SCH (08:53)
[2021-08-17] MEDS: CITALOPRAM 20 MG TABLET PO SCH (08:53)
[2021-08-17] MEDS: DOCUSATE SODIUM 100 MG CAP PO SCH (08:53)
[2021-08-17] MEDS: LISINOPRIL 5 MG TABLET PO SCH (08:53)
[2021-08-17] MEDS: OLOPATADINE HCL 0.1% 5ML DROPS OP SCH (08:54)
[2021-08-17] MEDS ORDERED: DOCUSATE SODIUM 100 MG CAP PO SCH (09:00)
[2021-08-17] MEDS ORDERED: PREDNISONE 10 MG TABLET PO SCH (09:00)
[2021-08-17] MEDS ORDERED: CETIRIZINE HCL 5 MG TABLET PO SCH (09:00)
[2021-08-17] MEDS ORDERED: APIXABAN 5 MG TABLET PO SCH (09:00)
[2021-08-17] MEDS ORDERED: LISINOPRIL 5 MG TABLET PO SCH (09:00)
[2021-08-17] MEDS ORDERED: METOPROLOL SUCCINATE 50 MG TAB.SR.24H PO SCH (09:00)
[2021-08-17] MEDS ORDERED: ISOSORBIDE MONO 30MG SR TAB PO SCH (09:00)
[2021-08-17] MEDS ORDERED: PANTOPRAZOLE 40 MG/VIAL IVP SCH (09:00)
[2021-08-17 11:00] VITALS: BP 112/51
[2021-08-17 16:00] VITALS: BP 109/54
[2021-08-17 19:00] VITALS: BP 111/57
[2021-08-17] MEDS: ATORVASTATIN 10 MG TABLET PO SCH (19:37)
[2021-08-17] MEDS ORDERED: CLONAZEPAM 0.5 MG TABLET PO ONE (22:00)
[2021-08-17] MEDS ORDERED: CLONAZEPAM 0.5 MG TABLET PO PRN (22:30)
[2021-08-18] VITALS (55 sets, daily range): BP systolic 90–136; BP diastolic 51–77
[2021-08-18] MEDS: DOXYCYCLINE 100MG+NS 250ML IV SCH ×2 (02:27→16:56)
[2021-08-18] MEDS: SOLU-MEDROL 40MG VIAL IVP SCH ×4 (02:28→20:01)
[2021-08-18 04:21] LABS: HEMATOCRIT 34.8 % (42-54); MEAN CORPUSCULAR HEMOGLOBIN 29.5 pg (27.0-33.0); MEAN CORPUSCULAR HGB CONC 31.6 g/dL (32.0-36.0); MEAN CORPUSCULAR VOLUME 93.3 fL (79-99); RED BLOOD CELL COUNT(AUTO) 3.73 MIL/uL (4.50-6.20); RED CELL DISTRIBUTION WIDTH 17.7 % (11.0-15.5); WHITE BLOOD COUNT (AUTO) 15.1 K/uL (4.8-10.8)
[2021-08-18 04:35] LABS: CREATININE 0.9 mg/dL (0.5-1.5); POTASSIUM 4.8 mmol/L (3.5-5.1)
[2021-08-18] MEDS ORDERED: METOPROLOL TARTRATE 1 MG/ML 5ML VIAL IV STA (04:43)
[2021-08-18] MEDS ORDERED: METOPROLOL TARTRATE 1 MG/ML 5ML VIAL IV ONE ×3 (04:47→23:00)
[2021-08-18] MEDS: ZOSYN 3.375GM +NS 50ML IV SCH ×3 (04:48→20:01)
[2021-08-18] MEDS: LEVOTHYROXINE 50 MCG TABLET PO SCH (04:51)
[2021-08-18] MEDS: BUDESONIDE 0.5 MG/2 ML INH IH SCH ×2 (06:20→19:04)
[2021-08-18] MEDS: IPRATROPIUM/ALBUTEROL SULFATE 3 ML SOLUTION IH SCH ×4 (06:20→23:23)
[2021-08-18] MEDS: CITALOPRAM 20 MG TABLET PO SCH (09:00)
[2021-08-18] MEDS: METOCLOPRAMIDE 5 MG TABLET PO SCH (09:00)
[2021-08-18] MEDS: LISINOPRIL 5 MG TABLET PO SCH (09:00)
[2021-08-18] MEDS ORDERED: CLONAZEPAM 0.5 MG TABLET PO SCH (09:00)
[2021-08-18] MEDS: ISOSORBIDE MONO 30MG SR TAB PO SCH (09:00)
[2021-08-18] MEDS: CETIRIZINE HCL 5 MG TABLET PO SCH (09:00)
[2021-08-18] MEDS: OLOPATADINE HCL 0.1% 5ML DROPS OP SCH (09:00)
[2021-08-18] MEDS: DOCUSATE SODIUM 100 MG CAP PO SCH (09:00)
[2021-08-18] MEDS: PANTOPRAZOLE 40 MG TAB DR PO SCH (09:00)
[2021-08-18] MEDS: METOPROLOL SUCCINATE 50 MG TAB.SR.24H PO SCH (09:00)
[2021-08-18] MEDS ORDERED: IOHEXOL-350 50ML VIAL IV ONE (09:13)
[2021-08-18] MEDS ORDERED: LIDOCAINE HCL 1% MDV 50ML VIAL ONE (09:14)
[2021-08-18] MEDS ORDERED: IOHEXOL 350 MG/ML 100ML INFUS..BTL IV ONE (10:34)
[2021-08-18] MEDS ORDERED: DILTIAZEM 25MG INJ IVP ONE (10:39)
[2021-08-18] MEDS ORDERED: ASPIRIN 325MG EC TAB PO ONE (10:50)
[2021-08-18] MEDS ORDERED: CLOPIDOGREL 300MG TAB ONE (10:51)
[2021-08-18] MEDS ORDERED: ONDANSETRON 4MG INJ IVP SCH (11:30)
[2021-08-18] MEDS ORDERED: MORPHINE 4 MG SYG IVP SCH ×2 (11:30)
[2021-08-18] MEDS ORDERED: NITROGLYCERIN 50MG/D5W 250ML 1 BOT IV PRN (11:30)
[2021-08-18] MEDS ORDERED: ACETAMINOPHEN WITH CODEINE 1 TAB TAB PO PRN ×2 (11:30)
[2021-08-18] MEDS ORDERED: TEMAZEPAM 30 MG CAP PO PRN (11:30)
[2021-08-18] MEDS ORDERED: ONDANSETRON 4MG INJ IVP PRN (11:30)
[2021-08-18] MEDS ORDERED: CLOPIDOGREL 300MG TAB PO SCH (11:30)
[2021-08-18] MEDS: DILTIAZEM 125MG+100 ML NS 125 ML IV PRN ×2 (11:50→15:22)
[2021-08-18 12:30] LABS: INR 1.15 (0.85-1.15); PROTHROMBIN TIME 12.4 SEC (9.6-11.6)
[2021-08-18 12:31] LABS: PARTIAL THROMBOPLASTIN TIME 80.6 SEC (26.3-35.5)
[2021-08-18 15:25] LABS: INR 1.12 (0.85-1.15); PROTHROMBIN TIME 12.1 SEC (9.6-11.6)
[2021-08-18 15:26] LABS: PARTIAL THROMBOPLASTIN TIME 31.3 SEC (26.3-35.5)
[2021-08-18] MEDS ORDERED: METOPROLOL TARTRATE 25 MG TAB PO ONE ×2 (18:00→23:00)
[2021-08-18] MEDS: ATORVASTATIN 10 MG TABLET PO SCH (20:01)
[2021-08-18] MEDS: ZONISAMIDE 25 MG PO SCH (20:17)
[2021-08-18] MEDS ORDERED: METOPROLOL TARTRATE 25 MG TAB ONE (22:45)
[2021-08-19] VITALS (34 sets, daily range): BP systolic 93–120; BP diastolic 38–74
[2021-08-19] MEDS: SOLU-MEDROL 40MG VIAL IVP SCH ×3 (03:36→16:12)
[2021-08-19] MEDS: DOXYCYCLINE 100MG+NS 250ML IV SCH ×2 (03:36→16:12)
[2021-08-19 03:58] LABS: HEMATOCRIT 38.7 % (42-54); MEAN CORPUSCULAR HEMOGLOBIN 29.9 pg (27.0-33.0); MEAN CORPUSCULAR VOLUME 93.3 fL (79-99); RED BLOOD CELL COUNT(AUTO) 4.15 MIL/uL (4.50-6.20); RED CELL DISTRIBUTION WIDTH 17.5 % (11.0-15.5); WHITE BLOOD COUNT (AUTO) 11.3 K/uL (4.8-10.8)
[2021-08-19 04:04] LABS: CREATININE 1.2 mg/dL (0.5-1.5); POTASSIUM 4.6 mmol/L (3.5-5.1)
[2021-08-19] MEDS: ZOSYN 3.375GM +NS 50ML IV SCH ×3 (05:36→22:01)
[2021-08-19] MEDS: LEVOTHYROXINE 50 MCG TABLET PO SCH (05:37)
[2021-08-19] MEDS: IPRATROPIUM/ALBUTEROL SULFATE 3 ML SOLUTION IH SCH ×4 (06:45→23:53)
[2021-08-19] MEDS: BUDESONIDE 0.5 MG/2 ML INH IH SCH ×2 (06:45→18:59)
[2021-08-19] MEDS ORDERED: PANTOPRAZOLE 40 MG TAB DR PO SCH (09:00)
[2021-08-19] MEDS: METOCLOPRAMIDE 5 MG TABLET PO SCH (09:02)
[2021-08-19] MEDS: PANTOPRAZOLE 40 MG TAB DR PO SCH (09:02)
[2021-08-19] MEDS: CITALOPRAM 20 MG TABLET PO SCH (09:02)
[2021-08-19] MEDS: CETIRIZINE HCL 5 MG TABLET PO SCH (09:02)
[2021-08-19] MEDS: DOCUSATE SODIUM 100 MG CAP PO SCH (09:02)
[2021-08-19] MEDS: ASPIRIN 81MG CHEW TAB PO SCH (09:02)
[2021-08-19] MEDS: ZONISAMIDE 25 MG PO SCH ×2 (09:03→22:02)
[2021-08-19] MEDS: OLOPATADINE HCL 0.1% 5ML DROPS OP SCH (09:03)
[2021-08-19] MEDS: CLOPIDOGREL 75MG TAB PO SCH (09:03)
[2021-08-19] MEDS: LISINOPRIL 5 MG TABLET PO SCH (09:03)
[2021-08-19] MEDS: METOPROLOL SUCCINATE 50 MG TAB.SR.24H PO SCH (09:05)
[2021-08-19] MEDS: DILTIAZEM 125MG+100 ML NS 125 ML IV PRN (12:49)
[2021-08-19] MEDS ORDERED: METOPROLOL TARTRATE 1 MG/ML 5ML VIAL IV PRN (17:00)
[2021-08-19] MEDS: ATORVASTATIN 10 MG TABLET PO SCH (22:01)
[2021-08-20 03:22] VITALS: BP 112/64
[2021-08-20] MEDS: DOXYCYCLINE 100MG+NS 250ML IV SCH ×2 (04:00→13:26)
[2021-08-20 05:37] LABS: HEMATOCRIT 36.4 % (42-54); MEAN CORPUSCULAR HEMOGLOBIN 29.6 pg (27.0-33.0); MEAN CORPUSCULAR HGB CONC 31.9 g/dL (32.0-36.0); MEAN CORPUSCULAR VOLUME 92.9 fL (79-99); RED BLOOD CELL COUNT(AUTO) 3.92 MIL/uL (4.50-6.20); RED CELL DISTRIBUTION WIDTH 17.8 % (11.0-15.5); WHITE BLOOD COUNT (AUTO) 15.9 K/uL (4.8-10.8)
[2021-08-20] MEDS: ZOSYN 3.375GM +NS 50ML IV SCH (05:37)
[2021-08-20 05:51] LABS: POTASSIUM 4.6 mmol/L (3.5-5.1)
[2021-08-20] MEDS: LEVOTHYROXINE 50 MCG TABLET PO SCH (06:31)
[2021-08-20] MEDS: BUDESONIDE 0.5 MG/2 ML INH IH SCH (06:46)
[2021-08-20] MEDS: IPRATROPIUM/ALBUTEROL SULFATE 3 ML SOLUTION IH SCH ×2 (06:46→11:24)
[2021-08-20 06:56] LABS: ABG BASE EXCESS -0.8 mmol/L (-2.0-3.0); ABG HCO3 23.7 mmol/L (21.0-28.0); ABG OXYGEN SATURATION 93.5 % (95.0-99.0); ABG PCO2 38 mmHg (35-48)
[2021-08-20] MEDS ORDERED: CLOP75TA32 PO (07:12)
[2021-08-20 08:00] VITALS: BP 123/76
[2021-08-20] MEDS: CITALOPRAM 20 MG TABLET PO SCH (08:14)
[2021-08-20] MEDS: CETIRIZINE HCL 5 MG TABLET PO SCH (08:16)
[2021-08-20] MEDS: ASPIRIN 81MG CHEW TAB PO SCH (08:16)
[2021-08-20] MEDS: LISINOPRIL 5 MG TABLET PO SCH (08:16)
[2021-08-20] MEDS: METOCLOPRAMIDE 5 MG TABLET PO SCH (08:20)
[2021-08-20] MEDS: PANTOPRAZOLE 40 MG TAB DR PO SCH (08:20)
[2021-08-20] MEDS: DOCUSATE SODIUM 100 MG CAP PO SCH (08:20)
[2021-08-20] MEDS: METOPROLOL SUCCINATE 50 MG TAB.SR.24H PO SCH (08:20)
[2021-08-20] MEDS: OLOPATADINE HCL 0.1% 5ML DROPS OP SCH (08:21)
[2021-08-20] MEDS: ZONISAMIDE 25 MG PO SCH (08:21)
[2021-08-20] MEDS ORDERED: DOXY100C5 PO (08:26)
[2021-08-20] MEDS ORDERED: PRED20B PO (08:26)
[2021-08-20] MEDS ORDERED: METO-408 PO (08:26)
[2021-08-20] MEDS ORDERED: ASPI-1005 PO (08:42)
[2021-08-20] MEDS ORDERED: APIXABAN 5 MG TABLET PO SCH (09:00)
[2021-08-20] MEDS: CLOPIDOGREL 75MG TAB PO SCH (11:06)
[2021-08-20 11:24] VITALS: BP 123/70
[2021-08-20 12:00] VITALS: BP 130/87
[2021-08-20] MEDS: ATORVASTATIN 10 MG TABLET PO SCH (14:13)
[2021-08-21] MEDS ORDERED: PREDNISONE 20 MG TABLET PO SCH (09:00)
== END 2021-08-20 14:20 | disposition home or self-care (01) | DRG 246 ==
LOC: EDH 13:45 → EDHIP 13:46 → 4DH 21:01 → 2CH 08-18 11:50
PROVIDERS: ADMIT Internal Medicine; ATTEND Internal Medicine
PROC: 027034Z Dilation of Coronary Artery, One Artery with Drug-eluting Intraluminal Device, Percutaneous Approach (ICD-10-PCS; principal; 2021-08-18)
PROC: 4A023N7 Measurement of Cardiac Sampling and Pressure, Left Heart, Percutaneous Approach (ICD-10-PCS; 2021-08-18)
PROC: B2111ZZ Fluoroscopy of Multiple Coronary Arteries using Low Osmolar Contrast (ICD-10-PCS; 2021-08-18)
PROC: 5A09357 Assistance with Respiratory Ventilation, Less than 24 Consecutive Hours, Continuous Positive Airway Pressure (ICD-10-PCS; 2021-08-18)
PROC: 5A09357 Assistance with Respiratory Ventilation, Less than 24 Consecutive Hours, Continuous Positive Airway Pressure (ICD-10-PCS; 2021-08-20)
DX: I25.110 Atherosclerotic heart disease of native coronary artery with unstable angina pectoris (principal); J96.21 Acute and chronic respiratory failure with hypoxia; E43 Unspecified severe protein-calorie malnutrition; J96.22 Acute and chronic respiratory failure with hypercapnia; J44.1 Chronic obstructive pulmonary disease with (acute) exacerbation; E87.4 Mixed disorder of acid-base balance; R64 Cachexia; Z68.1 Body mass index [BMI] 19.9 or less, adult; D84.9 Immunodeficiency, unspecified; I48.19 Other persistent atrial fibrillation; D68.59 Other primary thrombophilia; I10 Essential (primary) hypertension; E78.5 Hyperlipidemia, unspecified; E03.9 Hypothyroidism, unspecified; I45.10 Unspecified right bundle-branch block; I25.10 Atherosclerotic heart disease of native coronary artery without angina pectoris; R54 Age-related physical debility; F41.9 Anxiety disorder, unspecified; Z99.81 Dependence on supplemental oxygen; Z87.891 Personal history of nicotine dependence; Z95.5 Presence of coronary angioplasty implant and graft; Z79.02 Long term (current) use of antithrombotics/antiplatelets; Z79.01 Long term (current) use of anticoagulants; Z79.52 Long term (current) use of systemic steroids; Z79.899 Other long term (current) drug therapy; Z82.5 Family history of asthma and other chronic lower respiratory diseases; Z83.3 Family history of diabetes mellitus; Z82.49 Family history of ischemic heart disease and other diseases of the circulatory system; Z82.0 Family history of epilepsy and other diseases of the nervous system; Z82.3 Family history of stroke; Z83.2 Family history of diseases of the blood and blood-forming organs and certain disorders involving the immune mechanism
CPT/HCPCS: 36415; 36600; 71045; 71250; 80048; 80061; 80076; 82010; 82435; 82550; 82803; 82947; 82948; 83605; 83735; 83874; 83880; 84132; 84145; 84295; 84439; 84443; 84481; 84484; 85018; 85025; 85027; 85610; 85651; 85730; 86140; 87040; 87635; 87804; 93005; 93306; 93458; 93970; 94640; 94664; 97039; C1769; C1887; C1894; C9113; C9600; G0378; J0696; J1644; J2543; J2920; J3490; J7120; Q9967